=== PATIENT | female | born 1970 | race Caucasian/White ===

== ENCOUNTER 2018-05-28 10:02 | Emergency (ER) | payer OTHER ==
[~2018-05-28] VITALS: Ht 167.6 cm; Wt 80.3 kg
[2018-05-28] MEDS ORDERED: KETO10TA2 PO (14:23)
[2018-05-28] MEDS ORDERED: NORFLEX100MG PO (14:23)
[2018-05-28] MEDS ORDERED: TUSSI PRES-B L120 M1 PO (14:23)
== END 2018-05-28 21:57 | disposition home or self-care (01) ==
LOC: ER 10:02
DX: R07.89 Other chest pain (principal); M54.2 Cervicalgia